=== PATIENT | female | born 1955 | race Caucasian/White ===

== ENCOUNTER 2022-06-20 05:02 | Emergency (ER) | payer OTHER ==
[~2022-06-20] VITALS: Ht 154.9 cm; Wt 42.7 kg
[2022-06-20] MEDS ORDERED: ALBUTEROL SULF 2.5 MG/0.5ML(0.5%) NEB SOLN NEB ONE (05:15)
[2022-06-20] MEDS ORDERED: methylPREDNISolone SOD SUCC 125 MG/2 ML VL IV ONE (05:15)
[2022-06-20] MEDS ORDERED: IPRATROPIUM BROM 0.5 MG/2.5ML INH SOL NEB ONE (05:15)
[2022-06-20 05:52] LABS: Basophils # (auto) 0 10 ^3/uL (0-0.2); Basophils % (auto) 0.3 % (0.0-2.0); Eosinophils # (auto) 0.1 10 ^3/uL (0-0.8); Eosinophils % (auto) 1.5 % (0.0-7.0); Hematocrit 40.7 % (36.0-46.0); Hemoglobin 13.7 g/dL (12.2-16.2); Lymphocytes # (auto) 0.7 10 ^3/uL (0.4-5.4); Lymphocytes % (auto) 8.9 % (10.0-50.0); Mean Corpuscular Hemoglobin 31.5 pg (28.0-32.0); Mean Corpuscular Hgb Conc. 33.7 g/dL (32.0-36.0); Mean Corpuscular Volume 93.5 fL (80.0-100.0); Monocytes # (auto) 0.6 10 ^3/uL (0-1.3); Monocytes % (auto) 7.4 % (0.0-12.0); Neutrophils # (auto) 6.5 10 ^3/uL (1.6-8.6); Neutrophils % (auto) 81.9 % (37.0-80.0); Red Blood Cells 4.35 10^6/uL (4.0-5.20); Red Cell Distribution Width 13.4 % (11.8-14.3); White Blood Cell 7.9 10^3/uL (4.4-10.8)
[2022-06-20 06:13] LABS: Albumin 3.6 g/dL (3.4-5.0); Calcium 9.9 mg/dL (8.5-10.1); Magnesium 2.4 mg/dL (1.6-2.6); Potassium 3.9 mmol/L (3.5-5.1)
[2022-06-20 06:17] LABS: BUN/Creatinine Ratio 28.6 (10.0-20.0); Bilirubin, Total 0.6 mg/dL (0.2-1.0); Total Protein 6.9 g/dL (6.4-8.2)
[2022-06-20 06:24] LABS: INR 0.93 (0.9-1.15); Partial Thromboplastin Time 24.5 sec (24.6-33.4)
[2022-06-20] MEDS ORDERED: cefTRIAXone 1GM/50ML D5W 50 ML IV ONE (07:15)
[2022-06-20] MEDS ORDERED: AZITHROMYCIN 500MG/ 250ML 250 ML IV ONE (07:15)
[2022-06-20 07:56] LABS: Urine Bacteria NONE SEEN /hpf (None Seen); Urine Blood Negative /uL (Negative); Urine WBC 1 /hpf (0 - 5)
[2022-06-20 10:29] VITALS: BP 141/76
== END 2022-06-20 11:07 | disposition short-term general hospital (02) ==
LOC: EDBD 05:02 → ER 05:02
DX: J44.1 Chronic obstructive pulmonary disease with (acute) exacerbation (principal); I10 Essential (primary) hypertension; F17.210 Nicotine dependence, cigarettes, uncomplicated
CPT/HCPCS: 36415; 71045; 80053; 81001; 83735; 83880; 84484; 85025; 85379; 85610; 85730; 94640; 99291; J0456; J0696; J2930; J7644; 93005

== ENCOUNTER 2022-08-04 17:48 | Inpatient (IN) | payer OTHER ==
[~2022-08-04] VITALS: Ht 160 cm; Wt 44.0 kg
[2022-08-04] MEDS ORDERED: IPRATROPIUM BROM 0.5 MG/2.5ML INH SOL NEB ONE (18:00)
[2022-08-04] MEDS ORDERED: ROCURONIUM 10MG/ML 10ML VIAL IV ONE (18:00)
[2022-08-04] MEDS ORDERED: ALBUTEROL SULF 2.5 MG/0.5ML(0.5%) NEB SOLN NEB ONE (18:00)
[2022-08-04] MEDS ORDERED: ETOMIDATE (2MG/ML) 20ML VIAL IV ONE (18:00)
[2022-08-04] MEDS ORDERED: methylPREDNISolone SOD SUCC 125 MG/2 ML VL IV ONE (18:00)
[2022-08-04] MEDS ORDERED: AMPICILLIN & SULBACTAM SODIUM 3 GM in SODIUM CHL 0.9% 100 ML IV ONE (18:00)
[2022-08-04] MEDS ORDERED: MIDAZOLAM DRIP 50 mg/50mL 50 ML IV SCH (18:00)
[2022-08-04] MEDS: fentaNYL Drip 2500mCg/250mlNS 250 ML IV SCH (18:21)
[2022-08-04 18:27] LABS: Basophils # (auto) 0.1 10 ^3/uL (0-0.2); Basophils % (auto) 0.7 % (0.0-2.0); Eosinophils # (auto) 0.2 10 ^3/uL (0-0.8); Eosinophils % (auto) 2.2 % (0.0-7.0); Hematocrit 37.5 % (36.0-46.0); Hemoglobin 12.5 g/dL (12.2-16.2); Lymphocytes % (auto) 36.8 % (10.0-50.0); Mean Corpuscular Hemoglobin 31.9 pg (28.0-32.0); Mean Corpuscular Hgb Conc. 33.5 g/dL (32.0-36.0); Mean Corpuscular Volume 95.3 fL (80.0-100.0); Monocytes # (auto) 0.7 10 ^3/uL (0-1.3); Neutrophils # (auto) 4.2 10 ^3/uL (1.6-8.6); Neutrophils % (auto) 51.3 % (37.0-80.0); Nucleated Red Blood Cells % 0.1 %; Red Blood Cells 3.93 10^6/uL (4.0-5.20); Red Cell Distribution Width 13.7 % (11.8-14.3); White Blood Cell 8.1 10^3/uL (4.4-10.8)
[2022-08-04 18:46] LABS: Albumin 2.6 g/dL (3.4-5.0); BUN/Creatinine Ratio 60.9 (10.0-20.0); Calcium 7.9 mg/dL (8.5-10.1); Potassium 4.1 mmol/L (3.5-5.1)
[2022-08-04 18:49] LABS: Bilirubin, Total 0.4 mg/dL (0.2-1.0); Total Protein 5.5 g/dL (6.4-8.2)
[2022-08-04 18:50] LABS: INR 0.96 (0.9-1.15)
[2022-08-04 19:26] LABS: Urine Amorphous Crystal FEW /hpf (None Seen); Urine Bacteria NONE SEEN /hpf (None Seen); Urine Blood Negative /uL (Negative); Urine Hyaline Cast FEW /lpf (0 - 2); Urine Mucus FEW (None Seen); Urine Specific Gravity 1.013 (1.001-1.035); Urine WBC 7 /hpf (0 - 5)
[2022-08-04] MEDS ORDERED: LORazepam 2MG/ML-1ML VIAL ONE (19:54)
[2022-08-04] MEDS ORDERED: OSELTAMIVIR 75 MG CAP PO ONE (20:00)
[2022-08-04 20:10] VITALS: BP 120/91
[2022-08-04] MEDS ORDERED: LORazepam 2MG/ML-1ML VIAL IV ONE (20:30)
[2022-08-04] MEDS: MIDAZOLAM DRIP 50 mg/50mL 50 ML IV SCH (20:44)
[2022-08-04] MEDS ORDERED: ACETAMINOPHEN 650 mg PER 20.3 mL UD GT ONE (21:30)
[2022-08-04 21:44] VITALS: BP 114/81
[2022-08-04] MEDS ORDERED: ACETAMINOPHEN 325 MG TAB PO PRN (21:45)
[2022-08-04] MEDS ORDERED: SODIUM CHLORIDE 0.9% 1,000 ML IV SCH (21:45)
[2022-08-04] MEDS ORDERED: NITROGLYCERIN 0.4 MG SL TAB SL PRN (21:45)
[2022-08-04] MEDS ORDERED: ONDANSETRON HCL 4 MG/2 ML VIAL IV PRN (21:45)
[2022-08-04 22:10] VITALS: BP 94/69
[2022-08-04] MEDS: IPRATROPIUM BROM 0.5 MG/2.5ML INH SOL NEB PRN (22:14)
[2022-08-04] MEDS: ALBUTEROL SULF 2.5 MG/0.5ML(0.5%) NEB SOLN NEB PRN (22:14)
[2022-08-04] MEDS ORDERED: SODIUM CHLORIDE 0.9% 500 ML IV ONE (23:00)
[2022-08-04] MEDS ORDERED: ALBUMIN 25% 100 ML IV ONE (23:00)
[2022-08-05] VITALS (78 sets, daily range): BP systolic 82–144; BP diastolic 56–98
[2022-08-05] MEDS: IPRATROPIUM BROM 0.5 MG/2.5ML INH SOL NEB PRN (02:04)
[2022-08-05] MEDS: ALBUTEROL SULF 2.5 MG/0.5ML(0.5%) NEB SOLN NEB PRN (02:05)
[2022-08-05 07:47] LABS: Basophils # (auto) 0 10 ^3/uL (0-0.2); Basophils % (auto) 0.1 % (0.0-2.0); Eosinophils # (auto) 0 10 ^3/uL (0-0.8); Hematocrit 27.7 % (36.0-46.0); Hemoglobin 9.4 g/dL (12.2-16.2); Lymphocytes # (auto) 0.3 10 ^3/uL (0.4-5.4); Lymphocytes % (auto) 3.3 % (10.0-50.0); Mean Corpuscular Hemoglobin 31.5 pg (28.0-32.0); Mean Corpuscular Hgb Conc. 33.8 g/dL (32.0-36.0); Mean Corpuscular Volume 93.2 fL (80.0-100.0); Monocytes # (auto) 0.2 10 ^3/uL (0-1.3); Monocytes % (auto) 2.5 % (0.0-12.0); Neutrophils # (auto) 8.2 10 ^3/uL (1.6-8.6); Neutrophils % (auto) 94.1 % (37.0-80.0); Red Blood Cells 2.97 10^6/uL (4.0-5.20); Red Cell Distribution Width 13.8 % (11.8-14.3); White Blood Cell 8.7 10^3/uL (4.4-10.8)
[2022-08-05 08:23] LABS: Calcium 8.7 mg/dL (8.5-10.1); Potassium 3.9 mmol/L (3.5-5.1)
[2022-08-05 08:27] LABS: BUN/Creatinine Ratio 36.7 (10.0-20.0); Bilirubin, Total 0.5 mg/dL (0.2-1.0); Total Protein 5.3 g/dL (6.4-8.2)
[2022-08-05] MEDS: cefTRIAXone 1GM/50ML D5W 50 ML IV SCH (09:04)
[2022-08-05] MEDS: methylPREDNISolone SOD SUCC 40 MG/ML VL IV SCH ×2 (09:57→21:56)
[2022-08-05] MEDS: PANTOPRAZOLE 40 MG/10 ML VIAL INJ IV SCH (09:57)
[2022-08-05] MEDS: ENOXAPARIN SOD 40 MG/0.4 ML SYRINGE SC SCH (09:57)
[2022-08-05] MEDS: OSELTAMIVIR 75MG/5ML ORAL SUSP NG SCH ×2 (10:52→21:57)
[2022-08-05] MEDS ORDERED: VANCOMYCIN PER PHARMACY 0 MG IV SCH (15:15)
[2022-08-05] MEDS: MIDAZOLAM DRIP 50 mg/50mL 50 ML IV SCH ×2 (15:28→21:45)
[2022-08-05] MEDS ORDERED: Jevity 1.2 Cal/Fiber 1 Liter GT SCH (15:30)
[2022-08-05] MEDS: SODIUM CHLORIDE 0.9% 1,000 ML IV SCH ×2 (16:03→21:57)
[2022-08-05] MEDS: VANCOMYCIN 750mg/250ml 250 ML IV SCH (16:50)
[2022-08-05] MEDS ORDERED: IPRATROPIUM BROM 0.5 MG/2.5ML INH SOL NEB SCH (18:00)
[2022-08-05] MEDS: fentaNYL Drip 2500mCg/250mlNS 250 ML IV SCH (18:15)
[2022-08-05] MEDS: IPRATROPIUM BROM 0.5 MG/2.5ML INH SOL NEB SCH ×2 (18:32→22:11)
[2022-08-05] MEDS: ALBUTEROL SULF 2.5 MG/0.5ML(0.5%) NEB SOLN NEB SCH ×2 (18:32→22:11)
[2022-08-05] MEDS: PHENYLEPHRINE IV 250 ML IV SCH ×2 (20:42→20:45)
[2022-08-06] VITALS (106 sets, daily range): BP systolic 76–145; BP diastolic 51–95
[2022-08-06] MEDS: VANCOMYCIN 750mg/250ml 250 ML IV SCH ×3 (00:06→16:21)
[2022-08-06] MEDS: PHENYLEPHRINE IV 250 ML IV SCH ×3 (00:25→15:25)
[2022-08-06] MEDS: IPRATROPIUM BROM 0.5 MG/2.5ML INH SOL NEB SCH ×6 (02:07→22:33)
[2022-08-06] MEDS: MIDAZOLAM DRIP 50 mg/50mL 50 ML IV SCH ×5 (02:07→23:00)
[2022-08-06] MEDS: ALBUTEROL SULF 2.5 MG/0.5ML(0.5%) NEB SOLN NEB SCH ×6 (02:07→22:33)
[2022-08-06] MEDS: fentaNYL Drip 2500mCg/250mlNS 250 ML IV SCH (06:39)
[2022-08-06 07:43] LABS: Basophils # (auto) 0 10 ^3/uL (0-0.2); Basophils % (auto) 0.1 % (0.0-2.0); Eosinophils # (auto) 0 10 ^3/uL (0-0.8); Hematocrit 31.8 % (36.0-46.0); Hemoglobin 10.6 g/dL (12.2-16.2); Lymphocytes # (auto) 0.6 10 ^3/uL (0.4-5.4); Lymphocytes % (auto) 2.9 % (10.0-50.0); Mean Corpuscular Hemoglobin 31.1 pg (28.0-32.0); Mean Corpuscular Hgb Conc. 33.3 g/dL (32.0-36.0); Mean Corpuscular Volume 93.4 fL (80.0-100.0); Monocytes # (auto) 0.5 10 ^3/uL (0-1.3); Monocytes % (auto) 2.5 % (0.0-12.0); Neutrophils # (auto) 19.7 10 ^3/uL (1.6-8.6); Neutrophils % (auto) 94.5 % (37.0-80.0); Nucleated Red Blood Cells % 0.1 %; Red Blood Cells 3.41 10^6/uL (4.0-5.20); Red Cell Distribution Width 14.3 % (11.8-14.3); White Blood Cell 20.9 10^3/uL (4.4-10.8)
[2022-08-06 08:01] LABS: Anion Gap 5 (5-15); Blood Urea Nitrogen 16 mg/dL (7-18); Calcium 9.1 mg/dL (8.5-10.1); Carbon Dioxide 26 mmol/L (21-32); Chloride 108 mmol/L (98-107); GFR African American 206 mL/min; GFR Non-African American 170 mL/min; Glucose 124 mg/dL (74-106); Potassium 4.5 mmol/L (3.5-5.1); Sodium 139 mmol/L (136-145)
[2022-08-06] MEDS: cefTRIAXone 1GM/50ML D5W 50 ML IV SCH (08:58)
[2022-08-06] MEDS: methylPREDNISolone SOD SUCC 40 MG/ML VL IV SCH ×2 (10:14→22:03)
[2022-08-06] MEDS: ENOXAPARIN SOD 40 MG/0.4 ML SYRINGE SC SCH (10:15)
[2022-08-06] MEDS: PANTOPRAZOLE 40 MG/10 ML VIAL INJ IV SCH (10:15)
[2022-08-06] MEDS: OSELTAMIVIR 75MG/5ML ORAL SUSP NG SCH ×2 (10:37→22:03)
[2022-08-07] VITALS (98 sets, daily range): BP systolic 76–161; BP diastolic 54–96
[2022-08-07] MEDS: SODIUM CHLORIDE 0.9% 1,000 ML IV SCH (00:03)
[2022-08-07] MEDS: PHENYLEPHRINE IV 250 ML IV SCH ×3 (01:25→18:05)
[2022-08-07] MEDS: VANCOMYCIN 1GM/250ML 250 ML IV SCH ×2 (02:13→16:18)
[2022-08-07] MEDS: ALBUTEROL SULF 2.5 MG/0.5ML(0.5%) NEB SOLN NEB SCH ×6 (03:09→23:38)
[2022-08-07] MEDS: IPRATROPIUM BROM 0.5 MG/2.5ML INH SOL NEB SCH ×6 (03:10→23:38)
[2022-08-07] MEDS: MIDAZOLAM DRIP 50 mg/50mL 50 ML IV SCH ×4 (04:04→21:08)
[2022-08-07 04:36] LABS: Basophils # (auto) 0 10 ^3/uL (0-0.2); Eosinophils # (auto) 0 10 ^3/uL (0-0.8); Hematocrit 30.9 % (36.0-46.0); Hemoglobin 10.4 g/dL (12.2-16.2); Lymphocytes # (auto) 0.3 10 ^3/uL (0.4-5.4); Mean Corpuscular Hemoglobin 31.8 pg (28.0-32.0); Mean Corpuscular Hgb Conc. 33.6 g/dL (32.0-36.0); Mean Corpuscular Volume 94.6 fL (80.0-100.0); Monocytes # (auto) 0.5 10 ^3/uL (0-1.3); Monocytes % (auto) 3.1 % (0.0-12.0); Neutrophils # (auto) 14.8 10 ^3/uL (1.6-8.6); Neutrophils % (auto) 94.9 % (37.0-80.0); Nucleated Red Blood Cells % 0.1 %; Red Blood Cells 3.27 10^6/uL (4.0-5.20); Red Cell Distribution Width 14.2 % (11.8-14.3); White Blood Cell 15.6 10^3/uL (4.4-10.8)
[2022-08-07 04:54] LABS: BUN/Creatinine Ratio 37.2 (10.0-20.0); Calcium 8.9 mg/dL (8.5-10.1); Potassium 3.6 mmol/L (3.5-5.1)
[2022-08-07] MEDS: fentaNYL Drip 2500mCg/250mlNS 250 ML IV SCH (06:35)
[2022-08-07] MEDS: cefTRIAXone 1GM/50ML D5W 50 ML IV SCH (09:43)
[2022-08-07] MEDS: PANTOPRAZOLE 40 MG/10 ML VIAL INJ IV SCH (09:43)
[2022-08-07] MEDS: ENOXAPARIN SOD 40 MG/0.4 ML SYRINGE SC SCH (09:44)
[2022-08-07] MEDS: methylPREDNISolone SOD SUCC 40 MG/ML VL IV SCH ×2 (09:44→21:24)
[2022-08-07] MEDS: OSELTAMIVIR 75MG/5ML ORAL SUSP NG SCH ×2 (10:19→21:24)
[2022-08-08] VITALS (92 sets, daily range): BP systolic 83–122; BP diastolic 59–85
[2022-08-08] MEDS: PHENYLEPHRINE IV 250 ML IV SCH ×3 (02:25→19:05)
[2022-08-08] MEDS: MIDAZOLAM DRIP 50 mg/50mL 50 ML IV SCH ×5 (02:32→21:34)
[2022-08-08] MEDS: IPRATROPIUM BROM 0.5 MG/2.5ML INH SOL NEB SCH ×5 (02:56→18:27)
[2022-08-08] MEDS: ALBUTEROL SULF 2.5 MG/0.5ML(0.5%) NEB SOLN NEB SCH ×5 (02:56→18:27)
[2022-08-08 04:38] LABS: Basophils # (auto) 0 10 ^3/uL (0-0.2); Basophils % (auto) 0.1 % (0.0-2.0); Eosinophils # (auto) 0 10 ^3/uL (0-0.8); Hematocrit 31.7 % (36.0-46.0); Hemoglobin 10.6 g/dL (12.2-16.2); Lymphocytes # (auto) 0.3 10 ^3/uL (0.4-5.4); Lymphocytes % (auto) 2.9 % (10.0-50.0); Mean Corpuscular Hemoglobin 31.9 pg (28.0-32.0); Mean Corpuscular Hgb Conc. 33.4 g/dL (32.0-36.0); Mean Corpuscular Volume 95.6 fL (80.0-100.0); Monocytes # (auto) 0.5 10 ^3/uL (0-1.3); Monocytes % (auto) 4.5 % (0.0-12.0); Neutrophils # (auto) 9.4 10 ^3/uL (1.6-8.6); Neutrophils % (auto) 92.5 % (37.0-80.0); Red Blood Cells 3.32 10^6/uL (4.0-5.20); Red Cell Distribution Width 14.7 % (11.8-14.3); White Blood Cell 10.1 10^3/uL (4.4-10.8)
[2022-08-08] MEDS: SODIUM CHLORIDE 0.9% 1,000 ML IV SCH (05:33)
[2022-08-08] MEDS: VANCOMYCIN 1GM/250ML 250 ML IV SCH ×2 (05:51→20:00)
[2022-08-08] MEDS: fentaNYL Drip 2500mCg/250mlNS 250 ML IV SCH ×2 (06:56→21:33)
[2022-08-08] MEDS: cefTRIAXone 1GM/50ML D5W 50 ML IV SCH (08:03)
[2022-08-08] MEDS: PANTOPRAZOLE 40 MG/10 ML VIAL INJ IV SCH (08:03)
[2022-08-08] MEDS: methylPREDNISolone SOD SUCC 40 MG/ML VL IV SCH (08:03)
[2022-08-08] MEDS: ENOXAPARIN SOD 40 MG/0.4 ML SYRINGE SC SCH (08:04)
[2022-08-08] MEDS: OSELTAMIVIR 75MG/5ML ORAL SUSP NG SCH (10:00)
== END 2022-08-08 22:02 | disposition short-term general hospital (02) | DRG 870 ==
LOC: ER 17:48 → EDBD 17:48 → TELE 21:39 → ICU WEST 08-05 06:17
PROVIDERS: ADMIT Nurse Practitioner; ATTEND Internal Medicine
PROC: 5A1955Z Respiratory Ventilation, Greater than 96 Consecutive Hours (ICD-10-PCS; principal; 2022-08-04)
PROC: 0BH17EZ Insertion of Endotracheal Airway into Trachea, Via Natural or Artificial Opening (ICD-10-PCS; 2022-08-04)
DX: A41.9 Sepsis, unspecified organism (principal); J96.01 Acute respiratory failure with hypoxia; R65.21 Severe sepsis with septic shock; J43.9 Emphysema, unspecified; N28.89 Other specified disorders of kidney and ureter; I10 Essential (primary) hypertension; D64.9 Anemia, unspecified; J10.1 Influenza due to other identified influenza virus with other respiratory manifestations; F17.210 Nicotine dependence, cigarettes, uncomplicated; Z88.1 Allergy status to other antibiotic agents; Z20.822 Contact with and (suspected) exposure to COVID-19; Z88.5 Allergy status to narcotic agent
CPT/HCPCS: 31500; 36415; 36600; 71045; 71275; 80048; 80053; 80202; 81001; 82565; 82805; 82962; 83690; 83880; 84484; 85025; 85379; 85610; 86850; 86900; 86901; 87040; 87070; 87081; 87205; 87426; 87804; 93005; 93306; 94002; 94003; 94640; 94644; 96365; 96375; 99152; 99291; C9113; G0378; J0696; J2250; P9047